=== PATIENT | female | born 1945 | race Caucasian/White ===

== ENCOUNTER → 2018-06-23 | Outpatient (CLI) | payer OTHER | LOC: FIMAGING 12:09 | PROVIDERS: ATTEND Orthopaedic Surgery | DX: Z01.818 Encounter for other preprocedural examination (principal); M17.12 Unilateral primary osteoarthritis, left knee ==

== ENCOUNTER 2018-07-09 07:57 | Inpatient (IN) | payer OTHER ==
--- NOTE | 2018-07-09 07:14 | PDHPUP ---
History & Physical Update H&P update statement: This history and physical update is based on an assessment of the patient which was completed after admission or registration (within 24 hours), but prior to the surgery/procedure. H&P update: H&P reviewed & patient examined, no change in patient's condition since H&P completed
[~2018-07-09 07:57] MED LIST: ROPIVACAINE 0.2% 80 MG, EPINEPHrine 0.2 MG, KETOROLAC TROMETHAMINE 30 MG in SYRINGE 0 ML IU ONE; TRANEXAMIC ACID 3,000 MG in NS (SYRINGE) 50 ML IRR ONE; TRANEXAMIC ACID 3,000 MG/50 ML BAG IRR ONE
[2018-07-09] MEDS ORDERED: FAMOTIDINE 20 MG TAB PO ONE (08:09)
[2018-07-09] MEDS ORDERED: ACETAMINOPHEN 325 MG TAB PO ONE (08:09)
[2018-07-09] MEDS ORDERED: ceFAZolin 2 GM/DEXTROSE 100 ML IV ONE (08:09)
[2018-07-09] MEDS ORDERED: DEXAMETHASONE 4 MG/ML VIAL IVP ONE (08:09)
[2018-07-09] MEDS ORDERED: LR 1,000 ML IV ONE (08:11)
[2018-07-09] MEDS ORDERED: HYDROmorphONE/DILAUDID 2 MG/ML INJ IVP PRN (09:38)
[2018-07-09] MEDS ORDERED: ONDANSETRON 4 MG/2 ML VIAL IVP PRN ×2 (09:38→11:39)
[2018-07-09] MEDS ORDERED: ALBUTEROL 3 ML DEYVIAL IH PRN (09:38)
[2018-07-09] MEDS ORDERED: NALOXONE HCL 0.4 MG/ML INJ IVP PRN (09:38)
[2018-07-09] MEDS ORDERED: fentaNYL 100 MCG/2 ML INJ IVP PRN (09:38)
[2018-07-09] MEDS ORDERED: ACETAMINOPHEN 500 MG TAB PO PRN (09:38)
[2018-07-09] MEDS ORDERED: DEXAMETHASONE 4 MG/ML VIAL IVP PRN (09:38)
[2018-07-09] MEDS ORDERED: HYDROCODONE/APAP 5/325 TAB PO PRN (09:38)
[2018-07-09] MEDS ORDERED: oxyCODONE IR 5 MG TAB PO PRN (09:38)
--- NOTE | 2018-07-09 09:40 | PDANEPAE ---
ANE History of Present Illness L TKA ANE Past Medical History - Cardiovascular History Hx Hypertension: No Hx Arrhythmias: No Hx Chest Pain: No Hx Coronary Artery / Peripheral Vascular Disease: No Hx CHF / Valvular Disease: No Hx Palpitations: No Cardiovascular History Comment: no cp. murmur as child - Pulmonary History Hx COPD: No Hx Asthma/Reactive Airway Disease: No Hx Recent Upper Respiratory Infection: No Hx Oxygen in Use at Home: No Hx Sleep Apnea: No Sleep Apnea Screening Result - Last Documented: Negative Pulmonary History Comment: denies sob w stairs - Neurologic History Hx Cerebrovascular Accident: No Hx Seizures: No Hx Dementia: No Neurologic History Comment: series migraines , no prob since. sinus vargas as child - Endocrine History Hx Diabetes: Yes Endocrine History Comment: low thyroid - Renal History Hx Renal Disorders: No - Liver History Hx Hepatic Disorders: Yes Hepatic History Comment: hepatitis years ago, trated w rest - Neurological & Psychiatric Hx Hx Neurological and Psychiatric Disorders: No - Cancer History Hx Cancer: No Cancer History Comment: BASAL CELL - NOSE - Congenital Disorder History Hx Congenital Disorders: Yes Congenital History Comment: aleksandra hip dislocations, casts as - GI History Hx Gastrointestinal Disorders: No Gastrointestinal History Comment: constipation. reflux occ, food related - Other Health History Other Health History: fx l knee in [facility] in 62'- wears brace w walking, curvature in leg. wears braces. wire bands rem. bruises easily - Chronic Pain History Chronic Pain: Yes (l thumb) - Surgical History Prior Surgeries: fx l knee rep ''s. spleenectomy''s. gamaliel . aleksandra bunionectomy. l knee scope 9 y ago. wisdom teeth ANE Review of Systems Review of Systems: - Exercise capacity METS (RN): 5 METS ANE Patient History - Allergies Allergies/Adverse Reactions: Sulfa (Sulfonamide Antibiotics) Allergy (Intermediate, Verified 07/27/14 11:32) Hives - Home Medications Home Medications: Aspirin EC [Aspirin EC 81 mg (*)] 81 mg PO DAILY 06/23/18 [Last Taken 07/04/18] Azelastine [Astelin Nasal [place] (RX)] 2 sprays EACHNARE HS 06/23/18 [Last Taken 07/04/18] Calcium Citrate W/Vit D [Citracal + D] 1 each PO DAILY 06/23/18 [Last Taken 2 Weeks Ago ~06/25/18] Famotidine [Pepcid 20 MG (*)] 40 mg PO BID 06/23/18 [Last Taken 07/09/18 04:30] Fluticasone Nasal [Flonase Nasal [place] (RX)] 2 sprays NASAL DAILY 06/23/18 [ Last Taken 06/07/18] Multivitamins [Multivitamin (*)] 1 each PO DAILY 06/23/18 [Last Taken 2 Weeks Ago ~06/25/18] Pravastatin Sodium [Pravachol] 10 mg PO HS 06/23/18 [Last Taken 07/08/18] Psyllium Husk [Metamucil] 0.8 gm PO BID 06/23/18 [Last Taken 07/08/18] levETIRAcetam [Keppra 500 mg (*)] 1,000 mg PO HS 06/23/18 [Last Taken 07/08/18] - NPO status NPO Since - Liquids (Date): 07/09/18 NPO Since - Liquids (Time): 05:00 NPO Since - Solids (Date): 07/08/18 NPO Since - Solids (Time): 19:30 - Smoking Hx Smoking Status: Never smoked - Family Anes Hx Family Hx Anesthesia Complications: none ANE Labs/Vital Signs - Vital Signs Blood Pressure: 134/79 Heart Rate: 54 Respiratory Rate: 18 O2 Sat (%): 97 Height: 162.56 cm Weight: 49.895 kg ANE Physical Exam - Airway Neck exam: FROM Mallampati Score: Class 2 - Pulmonary Pulmonary: clear to auscultation - Cardiovascular Cardiovascular: regular rate and rhythym - ASA Status ASA Status: II ANE Anesthesia Plan Anesthesia Plan: spinal Total IV Anesthesia: Yes
[2018-07-09] MEDS ORDERED: PROPOFOL/EMULSION 500 MG/50 ML BOTTLE IV ONE (10:00)
[2018-07-09] MEDS ORDERED: BUPIVACAINE/DEXTROSE 7.5MG/ML 2 ML SPINAL AMP SP ONE (10:02)
[2018-07-09] MEDS ORDERED: fentaNYL 100 MCG/2 ML INJ ONE (10:23)
[2018-07-09] MEDS ORDERED: PROPOFOL 200 MG/20 ML VIAL ONE (11:12)
[2018-07-09] MEDS ORDERED: DEXAMETHASONE 4 MG/ML VIAL ONE (11:13)
[2018-07-09] MEDS ORDERED: ONDANSETRON 4 MG/2 ML VIAL ONE (11:13)
[2018-07-09] MEDS ORDERED: ROCURONIUM 50 MG/5 ML VIAL ONE (11:13)
[2018-07-09] MEDS ORDERED: ROPIVACAINE HCL 150 MG/30 ML INJ ONE (11:14)
[2018-07-09] MEDS ORDERED: ePHEDrine SULFATE 25 MG/5 ML SYR ONE (11:15)
[2018-07-09] MEDS ORDERED: POLYETHYLENE GLYCOL 3350 17 GM PKT PO PRN (11:39)
[2018-07-09] MEDS ORDERED: MAGNESIUM HYDROXIDE 30 ML UDCUP PO PRN (11:39)
[2018-07-09] MEDS ORDERED: TEMAZEPAM 15 MG CAP PO PRN (11:39)
[2018-07-09] MEDS ORDERED: ONDANSETRON DISINTEGRATING 4 MG TAB PO PRN (11:39)
[2018-07-09] MEDS ORDERED: diphenhydrAMINE 25 MG CAP PO PRN (11:39)
[2018-07-09] MEDS ORDERED: PROMETHAZINE HCL 25 MG/ML INJ IVP PRN (11:39)
[2018-07-09] MEDS ORDERED: PROMETHAZINE HCL 25 MG SUPPR PR PRN (11:39)
[2018-07-09] MEDS ORDERED: METOCLOPRAMIDE 10 MG/2 ML VIAL IVP PRN (11:39)
[2018-07-09] MEDS ORDERED: DIPHENOXYLATE/ATROPINE LOMOTIL 1 TAB PO PRN (11:39)
[2018-07-09] MEDS ORDERED: BISACODYL 10 MG SUPP PR PRN (11:39)
[2018-07-09] MEDS ORDERED: LACTULOSE 20 GM/30 ML UDCUP PO PRN (11:39)
[2018-07-09] MEDS ORDERED: CYCLOBENZAPRINE 10 MG TAB PO PRN (11:39)
[2018-07-09] MEDS ORDERED: HYDROmorphONE/DILAUDID 2 MG TAB PO PRN (11:39)
--- NOTE | 2018-07-09 11:39 | POSTOPPROG ---
Post Op Note Date of Operation: 07/09/18 Surgeon: Isaiah Lopez Trainmaster: sara lopez Anesthesiologist: dr. yung Anesthesia: Spinal, Other (Specify) (adductor canal block) Pre-op Diagnosis: L knee OA Post-op Diagnosis: same Indication: left knee pain Procedure: L TKA robot assisted Findings: severe knee OA Inf/Abcess present in the surg proc area at time of surgery?: No EBL: 50-100
[2018-07-09] MEDS ORDERED: LR 1,000 ML IV SCH (12:00)
[2018-07-09] MEDS ORDERED: ACETAMINOPHEN 325 MG TAB ONE (12:22)
[2018-07-09] MEDS: ACETAMINOPHEN 325 MG TAB PO SCH ×2 (12:24→18:38)
--- NOTE | 2018-07-09 12:58 | PDMN ---
Medical Necessity Medical necessity: Pt meets IP criteria per PA & MCG S-700; est los >2 mn s/p L TKA (cpt 45330); requiring further monitoring & therapies; comorbid advanced age , severe nausea w/narcotics, stroke & seizures; per H&P & order 07/09/18
[2018-07-09] MEDS: ceFAZolin 2 GM/DEXTROSE 100 ML IV SCH (18:38)
[2018-07-09] MEDS: FAMOTIDINE 20 MG TAB PO SCH (20:49)
[2018-07-09] MEDS: SENNOSIDES/DOCUSATE SODIUM TAB PO SCH (20:49)
[2018-07-09] MEDS: ASPIRIN 81 MG CHEWABLE TAB PO SCH (20:50)
[2018-07-09] MEDS ORDERED: PRAVASTATIN SODIUM 10 MG TAB PO SCH (21:00)
[2018-07-09] MEDS ORDERED: levETIRAcetam 500 MG TAB PO SCH (21:00)
[2018-07-10] MEDS: ACETAMINOPHEN 325 MG TAB PO SCH ×3 (00:12→12:34)
[2018-07-10] MEDS: ceFAZolin 2 GM/DEXTROSE 100 ML IV SCH (01:40)
[2018-07-10 07:31] VITALS: BP 109/65
--- NOTE | 2018-07-10 08:28 | GOP ---
DATE OF OPERATION: 07/09/2018 SURGEON: Noreen Jeffries MD NETWORK SUPPORT ENGINEER: PRASHANT Graves ANESTHESIA: Spinal. PREOPERATIVE DIAGNOSIS: Left knee osteoarthritis. POSTOPERATIVE DIAGNOSIS: Left knee osteoarthritis. PROCEDURE PERFORMED: Left total knee arthroplasty with computer navigation, robotic assist. FINDINGS: ESTIMATED BLOOD LOSS: 30 cc. INDICATIONS: The patient is a 72-year-old female with severe and progressive pain and deformity of the left knee unresponsive to conservative care. The risks and benefits of surgical intervention were explained in detail. DESCRIPTION OF PROCEDURE: The patient was brought to the operative room and placed on the table in the supine position. Spinal anesthesia was induced without difficulty. A pneumatic tourniquet was applied about the left proximal thigh, and the leg was prepped and draped in a sterile fashion. The leg faria was applied. After exsanguination by elevation the tourniquet was inflated to 250 mmHg. Incision was made anterior medial from the tibial tuberosity to a point 2 cm proximal to the superior pole of the patella. Medial parapatellar arthrotomy was carried out from the superior pole of the patella and posteriorly in line with the fibers of the Type II VMO. Pathology: Severe lateral and patellofemoral osteoarthritis. The medial collateral ligament was elevated and the infrapatellar fat pad was resected. The patella was everted and the articular surface was excised. A 32 mm patellar button was placed. Attention was turned first to the distal aspect of the femur. After exposure of the femur, 2 half pins were placed for fixation of the femoral array. In a similar fashion, 2 pins were placed anteromedial on the tibia for fixation of the tibial array. External land marking and registration of the hip center were performed without difficulty. Internal femoral and tibial registration was carried out without difficulty and the femoral and tibial checkpoints were placed and verified for accuracy. Attention was turned to the femur. The foot print for the size 4 femoral component was cut with the saw using the Alerts robotic system and verified for accuracy against the CT based plan. In a similar fashion, the saw was used to cut the footprint for the size 4 tibial component using the BRENDEN system and verified for accuracy against the CT based plan. The tibial articular surface was excised without difficulty, followed by the intercondylar box cut. The knee was extended and the remnants of the medial and lateral meniscus were excised. The posterior capsule was injected with ropivacaine, epinephrine and Toradol. A size 4 tibial tray was positioned. Trial reduction was then carried out. There was excellent range of motion, alignment, and stability using the 4 x 9 mm polyethylene. All trials were then removed. The joint was thoroughly irrigated and carefully dried. The press-fit components were implanted. The permanent 9 mm polyethylene was placed without difficulty. The tourniquet was deflated and all bleeders were coagulated. The wound was thoroughly irrigated and closed using interrupted sutures of 2-0 Vicryl for the joint capsule. The subcu was closed with 3-0 Vicryl and the skin with 4-0 Monocryl. Dermabond and Steri-Strips were applied followed by a compressive dressing. The patient was then moved from the operating room to the recovery room in good condition, having tolerated the procedure well. /[id number]/MODL MTDD
--- NOTE | 2018-07-10 08:51 | SOAPPROG ---
SOAP Progress Note Assessment/Plan: Assessment: Patient is doing well POD 1 s/p L TKA Pain management: pain is well controlled on oral pain meds. VTE ppx: recommend aspirin 81 mg BID for 4 weeks, cont JOHANA and SCDs Anemia: level is expected initially postop. Asymptomatic. Continue to monitor D/c planning: d/c to home today pending release from PT Plan: 07/10/18 08:50 Subjective: patient is doing well today, denies SOB, chest pain and n/v. Objective: Vital Signs Temp Pulse Resp BP Pulse Ox 37.1 C 57 L 17 109/65 99 07/10/18 07:30 07/10/18 07:30 07/10/18 07:30 07/10/18 07:30 07/10/18 07:30 Laboratory Results 07/10/18 05:26 07/09/18 07/10/18 07/11/18 05:59 05:59 05:59 Intake Total 2880 Output Total 2530 450 Balance 350 -450 LLE; incision dressing is clean and dry, NVI, +pf/df ICD10 Worksheet Patient Problems: Problems Problem Status Onset Primary localized osteoarthritis of left knee Acute
[2018-07-10] MEDS: FAMOTIDINE 20 MG TAB PO SCH (09:11)
[2018-07-10] MEDS: SENNOSIDES/DOCUSATE SODIUM TAB PO SCH (09:11)
[2018-07-10] MEDS: ASPIRIN 81 MG CHEWABLE TAB PO SCH (10:13)
--- NOTE | 2018-07-10 10:52 | ASMTLACE ---
LACE Length of stay for Answers: 2 days current admission Acuity / Level of Answers: Yes Care: Did the patient have an inpatient admission? Comorbidities - select Answers: Diabetes (uncontrolled or all that apply controlled) Opioid dependence / Chronic pain # of Emergency department Answers: 0 visits in the last 6 months Score: 10 Date Signed: 07/10/2018 10:52 AM Electronically Signed By:IQRA Figueroa
--- NOTE | 2018-07-10 18:21 | GDS ---
ADMISSION DIAGNOSIS: Left knee osteoarthritis. DISCHARGE DIAGNOSIS: Left knee osteoarthritis. PROCEDURE: Left total knee arthroplasty, robotic assisted. VTE PROPHYLAXIS: Recommend aspirin 81 mg twice daily for 4 weeks. BRIEF DESCRIPTION OF HOSPITAL STAY: Patient was admitted for an elective joint arthroplasty. The pa mario alberto tolerated the procedure well and has passed physical therapy. The patient was given appropriat e antibiotic prophylaxis and venous thromboembolism prophylaxis. The patient's pain was well control led on oral pain medication, patient was holding down food, and had urinated. Decision was made to d ischarge the patient. The patient was given post-operative prescriptions pre-operatively. PLAN: To follow up as scheduled in Dr. Jeffries's office on July 28 at 9 a.m. /[id number]/MODL
== END 2018-07-10 12:45 | disposition home or self-care (01) | DRG 470 ==
LOC: F3N 07:57 → OBSVTOIN 11:42 → F3N 13:46
PROVIDERS: ADMIT Internal Medicine; ATTEND Orthopaedic Surgery
PROC: 0SRD0JZ Replacement of Left Knee Joint with Synthetic Substitute, Open Approach (ICD-10-PCS; principal; 2018-07-09 09:45)
PROC: 8E0Y0CZ Robotic Assisted Procedure of Lower Extremity, Open Approach (ICD-10-PCS; principal; 2018-07-09 09:45)
PROC: 8E0YXBZ Computer Assisted Procedure of Lower Extremity (ICD-10-PCS; principal; 2018-07-09 09:45)
DX: M17.12 Unilateral primary osteoarthritis, left knee (principal); G89.4 Chronic pain syndrome
CPT/HCPCS: 97116-GP; 97161-GP; G8978-GP-CI; G8978-GP-CJ; G8979-GP-CI; G8980-GP-CI; J0171; J0690; J1100; J1885; J2405; J2704; J2795; J3010

== ENCOUNTER → 2019-02-12 | Outpatient (CLI) | payer OTHER | LOC: BHFA 09:00 | PROVIDERS: ATTEND Internal Medicine Cardiovascular Disease | DX: R06.02 Shortness of breath (principal); R00.0 Tachycardia, unspecified ==